=== PATIENT | female | born 1985 | race American Indian/Alaskan Native ===

== ENCOUNTER 2017-03-20 10:29 | Emergency (ER) | payer SELFPAY ==
--- NOTE | 2017-03-20 14:44 | Emergency Department Report ---
ED Back Pain/Injury HPI - General Chief Complaint: Back Pain/Injury Stated Complaint: BACK PAIN Time Seen by Provider: 03/20/17 14:04 Source: patient Limitations: No Limitations - History of Present Illness Initial Comments: Here complaining of low back pain for the last 3 days. She denies any history. Denies any urinary burning frequency or urgency. Denies any nausea vomiting. Denies any abdominal pain. She says she started her menses 2 days ago. Denies any fever or chills or abdominal pain. MD Complaint: back pain Onset/Timin -: days(s) Similar Symptoms Previously: No Place: home Radiation: none Severity scale (0 -10): 5 Quality: aching Consistency: constant Improves With: none Worsens With: none Context: unknown Associated Symptoms: denies: confusion, weakness, chest pain, numbness, difficulty walking, cough, difficulty urinating, diaphoresis, incontinence, fever/chills, constipation, headaches, abdominal pain, loss of appetite, malaise , nausea/vomiting, rash, seizure, shortness of breath, syncope Treatments Prior to Arrival: other (None) - Related Data Previous Rx's Medication Instructions Recorded Last Taken Type HYDROcodone/APAP 5-325 [[place] 1 each PO Q4HR PRN #15 tablet 03/21/16 Unknown Rx 5/325] Sulfamethoxazole/Trimethoprim 1 each PO BID #14 tablet 03/21/16 Unknown Rx [Bactrim DS TAB] Nitrofurantoin [place]/M-Cryst 100 mg PO Q12HR #14 capsule 03/20/17 Unknown Rx [Macrobid CAP] Allergies Allergy/AdvReac Type Severity Reaction Status Date / Time No Known Allergies Allergy Verified 03/21/16 09:06 ED Review of Systems ROS: Stated complaint: BACK PAIN Other details as noted in HPI Comment: All other systems reviewed and negative Constitutional: denies: chills, fever Eyes: denies: eye pain ENT: denies: ear pain, throat pain Respiratory: no symptoms reported Cardiovascular: denies: chest pain, palpitations, edema, syncope Gastrointestinal: denies: abdominal pain, nausea, vomiting, diarrhea, constipation Genitourinary: denies: urgency, dysuria, frequency, hematuria, discharge Musculoskeletal: back pain. denies: arthralgia Skin: denies: rash Neurological: denies: headache ED Past Medical Hx - Past Medical History Previous Medical History?: Yes Hx Congestive Heart Failure: No Hx Diabetes: No Hx Asthma: No Hx COPD: No Hx HIV: No Additional medical history: OBESITY. ANEMIA - Surgical History Past Surgical History?: No - Family History Family history: hypertension - Social History Smoking Status: Never Smoker Substance Use Type: Alcohol - Medications Home Medications: Home Medications Medication Instructions Recorded Confirmed Last Taken Type HYDROcodone/APAP 5-325 [[place] 1 each PO Q4HR PRN #15 tablet 03/21/16 Unknown Rx 5/325] Sulfamethoxazole/Trimethoprim 1 each PO BID #14 tablet 03/21/16 Unknown Rx [Bactrim DS TAB] Nitrofurantoin [place]/M-Cryst 100 mg PO Q12HR #14 capsule 03/20/17 Unknown Rx [Macrobid CAP] ED Physical Exam - General Limitations: No Limitations General appearance: alert, in no apparent distress - Head Head exam: Present: atraumatic, normocephalic - Eye Eye exam: Present: normal appearance, PERRL, EOMI. Absent: conjunctival injection, periorbital swelling, periorbital tenderness Pupils: Present: normal accommodation - Neck Neck exam: Present: normal inspection, full ROM. Absent: tenderness, meningismus, lymphadenopathy - Expanded Neck Exam Expanded Neck exam: Absent: tenderness, midline deformity, anterior neck swelling, tracheal deviation - Respiratory Respiratory exam: Present: normal lung sounds bilaterally. Absent: respiratory distress, chest wall tenderness - Cardiovascular Cardiovascular Exam: Present: regular rate, normal rhythm, normal heart sounds - GI/Abdominal GI/Abdominal exam: Present: soft, normal bowel sounds. Absent: distended, tenderness, guarding, rebound, rigid - Extremities Exam Extremities exam: Present: normal inspection, full ROM, normal capillary refill. Absent: tenderness, pedal edema, joint swelling, calf tenderness - Back Exam Back exam: Present: normal inspection, full ROM. Absent: tenderness, CVA tenderness (R), CVA tenderness (L), muscle spasm, paraspinal tenderness, vertebral tenderness, rash noted - Expanded Back Exam Expanded Back exam: Absent: saddle anesthesia Back exam: Negative Straight Leg Raising: Left, Right - Neurological Exam Neurological exam: Present: alert, oriented X3, normal gait, reflexes normal. Absent: motor sensory deficit - Expanded Neurological Exam Expanded Neurological exam: Absent: innattentive, memory loss-remote event, memory loss- recent event, ataxia, receptive aphasia, expressive aphasia, total aphasia, tremor, protecting the airway Patient oriented to: Present: person, place, time Speech: Present: fluid speech Cranial nerves: EOM's Intact: Normal, Gag Reflex: Normal, Nystagmus: Normal, Facial Sensation: Normal Cerebellar function: Romberg: Normal Upper motor neuron: Pronator Drift: Normal, Sensory Extinction: Normal Sensory exam: Upper Extremity Light Touch: Normal, Upper Extremity Temperature: Normal, Lower Extremity Temperature: Normal, LE 2 Point Discrimination: Normal Motor strength exam: RUE: 5, LUE: 5, RLE: 5, LLE: 5 DTR: bicep (R): 2+, bicep (L): 2+, tricep (R): 2+, tricep (L): 2+, knee (R): 2+ , knee (L): 2+, ankle (R): 2+, ankle (L): 2+ Best Eye Response ([place]ois): (4) open spontaneously Best Motor Response (Kulwant): (6) obeys commands Best Verbal Response ([place]ois): (5) oriented [place]ois Total: 15 - Psychiatric Psychiatric exam: Present: normal affect, normal mood - Skin Skin exam: Present: warm, dry, intact, normal color. Absent: rash ED Course Vital Signs 03/20/17 03/20/17 12:01 17:40 Temperature 97.7 F Pulse Rate 61 64 Respiratory 16 16 Rate Blood Pressure 129/79 Blood Pressure 126/81 [Right] O2 Sat by Pulse 100 100 Oximetry - Reevaluation(s) Reevaluation #1: 03/20/17 17:26 Stable throughout ED Medical Decision Making - Lab Data Lab Results 03/20/17 Range/Units 14:40 Urine Color Yellow (Yellow) Urine Turbidity Clear (Clear) Urine pH 5.0 (5.0-7.0) Ur Specific [place] 1.013 (1.003-1.030) Urine Protein 30 mg/dl (Negative) mg/dL Urine Glucose (UA) Neg (Negative) mg/dL Urine Ketones Neg (Negative) mg/dL Urine Blood Lg (Negative) Urine Nitrite Neg (Negative) Ur Reducing Substances Not Reportable Urine Bilirubin Neg (Negative) Urine Ictotest Not Reportable Urine Urobilinogen < 2.0 (<2.0) mg/dL Ur Leukocyte Esterase Neg (Negative) Urine WBC (Auto) 24.0 H (0.0-6.0) /HPF Urine RBC (Auto) > 182.0 (0.0-6.0) /HPF U Epithel Cells (Auto) 2.0 (0-13.0) /HPF Urine Bacteria (Auto) 1+ (Negative) /HPF Urine Mucus Few /HPF Urine HCG, Qual Negative (Negative) Is currently on menses Urine culture pending - Medical Decision Making ED Course patient with acute lower back pain, Acute Cystitis. I went over UA and HCG- with patient and she voiced under standing. Patient with large amounts of blood due to menses. She voiced understanding of diagnoses and treatment plan and to follow up with PCP in 2-3 days. Prescription given for Macrobid. Critical care attestation.: If time is entered above; I have spent that time in minutes in the direct care of this critically ill patient, excluding procedure time. ED Disposition Clinical Impression: Acute cystitis with hematuria Back pain Qualifiers: Back pain location: low back pain Chronicity: acute Back pain laterality: bilateral Sciatica presence: without sciatica Qualified Code(s): M54.5 - Low back pain Disposition: DISCHARGED TO HOME OR SELFCARE Is pt being admited?: No Does the pt Need Aspirin: No Condition: Stable Instructions: Urinary Tract Infection in Children (ED), Back Pain (ED) Additional Instructions: Please increase her fluid intake Follow-up with primary care physician in 2-3 days and if you do not have one week and follow-up with [facility] Prescriptions: Nitrofurantoin Petroleum/M-Cryst [Macrobid CAP] 100 mg PO Q12HR #14 capsule Referrals: PRIMARY CARE, [Primary Care Provider] - 2-3 Days Forms: Work/School Release Form(ED)
[2017-03-20 15:12] LABS: Bacteria,Urine 1+ /HPF (Negative); Bilirubin,Urine NEG (Negative); Blood,Urine LG (Negative); Ketones,Urine NEG (Negative); Leukocyte Esterase,Urine NEG (Negative); Mucus,Urine FEW /HPF; Nitrite,Urine NEG (Negative); Urobilinogen,Urine < 2.0 mg/dL (<2.0)
[2017-03-20 15:15] LABS: RBC,Urine > 182.0 /HPF (0.0-6.0)
[2017-03-20 17:42] VITALS: BP 126/81
== END 2017-03-20 17:40 | disposition home or self-care (01) ==
LOC: ED 10:29
DX: N30.01 Acute cystitis with hematuria (principal); M54.5 Low back pain; D64.9 Anemia, unspecified; E66.9 Obesity, unspecified
CPT/HCPCS: 81001; 81025; 99283

== ENCOUNTER 2019-06-24 08:43 | Emergency (ER) | payer SELFPAY ==
[2019-06-24] MEDS ORDERED: ULTRAM PO ONE (09:25)
--- NOTE | 2019-06-24 09:30 | Emergency Department Report ---
ED General Adult HPI - General Chief complaint: Dizziness Stated complaint: EXTREME LOWER BACK PAIN/WEAK Time Seen by Provider: 06/24/19 09:00 Source: patient Mode of arrival: Ambulatory Limitations: No Limitations - History of Present Illness Initial comments: Patient presents to the emergency department with a chief complaint of lower back pain that started on Monday. Patient states she was getting her hair braided and a shop when she almost slipped the straining her back. Patient states her back pain is worse with movement and denies any issues with her bladder or stool. -: Sudden Location: back Radiation: non-radiation Severity scale (0 -10): 6 Quality: aching, sharp Consistency: constant Improves with: rest Worsens with: movement Associated Symptoms: denies other symptoms - Related Data Previous Rx's Medication Instructions Recorded Last Taken Type HYDROcodone/APAP 5-325 [[place] 1 each PO Q4HR PRN #15 tablet 03/21/16 Unknown Rx 5/325] Sulfamethoxazole/Trimethoprim 1 each PO BID #14 tablet 03/21/16 Unknown Rx [Bactrim DS TAB] Nitrofurantoin [place]/M-Cryst 100 mg PO Q12HR #14 capsule 03/20/17 Unknown Rx [Macrobid CAP] Acetaminophen/Codeine [Tylenol 1 tab PO Q6H PRN #15 tab 06/24/19 Unknown Rx /Codeine # 3 tab] Naproxen [Naprosyn] 500 mg PO BID PRN #20 tablet 06/24/19 Unknown Rx predniSONE [Deltasone] 20 mg PO DAILY #15 tablet 06/24/19 Unknown Rx traMADol [Ultram] 50 mg PO Q6HR PRN #15 tablet 06/24/19 Unknown Rx Allergies Allergy/AdvReac Type Severity Reaction Status Date / Time No Known Allergies Allergy Verified 03/21/16 09:06 ED Review of Systems ROS: Stated complaint: EXTREME LOWER BACK PAIN/WEAK Other details as noted in HPI Constitutional: denies: chills, fever Eyes: denies: eye pain, eye discharge, vision change ENT: denies: ear pain, throat pain Respiratory: denies: cough, shortness of breath, wheezing Cardiovascular: denies: chest pain, palpitations Endocrine: no symptoms reported Gastrointestinal: denies: abdominal pain, nausea, diarrhea Genitourinary: denies: urgency, dysuria, discharge Musculoskeletal: back pain. denies: joint swelling, arthralgia Skin: denies: rash, lesions Neurological: denies: headache, weakness, paresthesias Psychiatric: denies: anxiety, depression Hematological/Lymphatic: denies: easy bleeding, easy bruising ED Past Medical Hx - Past Medical History Previous Medical History?: Yes Hx Congestive Heart Failure: No Hx Diabetes: No Hx Asthma: No Hx COPD: No Hx HIV: No Additional medical history: OBESITY. ANEMIA - Surgical History Past Surgical History?: No - Social History Smoking Status: Never Smoker Substance Use Type: Alcohol - Medications Home Medications: Home Medications Medication Instructions Recorded Confirmed Last Taken Type HYDROcodone/APAP 5-325 [[place] 1 each PO Q4HR PRN #15 tablet 03/21/16 Unknown Rx 5/325] Sulfamethoxazole/Trimethoprim 1 each PO BID #14 tablet 03/21/16 Unknown Rx [Bactrim DS TAB] Nitrofurantoin [place]/M-Cryst 100 mg PO Q12HR #14 capsule 03/20/17 Unknown Rx [Macrobid CAP] Acetaminophen/Codeine [Tylenol 1 tab PO Q6H PRN #15 tab 06/24/19 Unknown Rx /Codeine # 3 tab] Naproxen [Naprosyn] 500 mg PO BID PRN #20 tablet 06/24/19 Unknown Rx predniSONE [Deltasone] 20 mg PO DAILY #15 tablet 06/24/19 Unknown Rx traMADol [Ultram] 50 mg PO Q6HR PRN #15 tablet 06/24/19 Unknown Rx ED Physical Exam - General Limitations: No Limitations General appearance: alert, in no apparent distress - Head Head exam: Present: atraumatic, normocephalic - Eye Eye exam: Present: normal appearance, PERRL, EOMI - ENT ENT exam: Present: mucous membranes moist - Neck Neck exam: Present: normal inspection - Respiratory Respiratory exam: Present: normal lung sounds bilaterally. Absent: respiratory distress - Cardiovascular Cardiovascular Exam: Present: regular rate, normal rhythm. Absent: systolic murmur, diastolic murmur, rubs, gallop - GI/Abdominal GI/Abdominal exam: Present: soft, normal bowel sounds - Extremities Exam Extremities exam: Present: normal inspection - Back Exam Back exam: Present: other (paralumbar tenderness to palpation bilaterally the spasms on the right side; there is no midline lumbar vertebral tenderness to palpation) - Neurological Exam Neurological exam: Present: alert, oriented X3 - Psychiatric Psychiatric exam: Present: normal affect, normal mood - Skin Skin exam: Present: warm, dry, intact, normal color. Absent: rash ED Course Vital Signs 06/24/19 08:44 Temperature 97.9 F Pulse Rate 59 L Respiratory 20 Rate O2 Sat by Pulse 98 Oximetry ED Medical Decision Making - Medical Decision Making Discussed plan of care with patient Critical care attestation.: If time is entered above; I have spent that time in minutes in the direct care of this critically ill patient, excluding procedure time. ED Disposition Clinical Impression: Lumbar back pain Disposition: - TO HOME OR SELFCARE Is pt being admited?: No Does the pt Need Aspirin: No Condition: Stable Instructions: Acute Low Back Pain (ED) Additional Instructions: return if worse Prescriptions: predniSONE [Deltasone] 20 mg PO DAILY #15 tablet Naproxen [Naprosyn] 500 mg PO BID PRN #20 tablet PRN Reason: pain Acetaminophen/Codeine [Tylenol /Codeine # 3 tab] 1 tab PO Q6H PRN #15 tab PRN Reason: pain traMADol [Ultram] 50 mg PO Q6HR PRN #15 tablet PRN Reason: Pain Referrals: [facility] [Provider Group] - 3-5 Days [facility] [Provider Group] - 3-5 Days [facility] [Outside] - 3-5 Days Time of Disposition: 09:28
== END 2019-06-24 10:23 | disposition home or self-care (01) ==
LOC: ED 08:43
DX: M54.5 Low back pain (principal); E66.9 Obesity, unspecified; Z79.899 Other long term (current) drug therapy
CPT/HCPCS: 99282